=== PATIENT | female | born 1990 | race Caucasian/White ===

== ENCOUNTER → 2017-04-20 21:31 | Outpatient (CLI) | payer BC, SELFPAY ==
[2017-04-20 23:14] LABS: Chlamydia Trachomatis by PCR Negative (Negative); Neisserai gonorrhoeae by PCR Negative (Negative); Probe Check PASS; Sample Adequacy Control PASS; Specimen Processing Control PASS
[2017-04-24 16:13] LABS: HPV Reflexed? NOT INDICATED
== END ==
PROVIDERS: Family Provider Family Medicine; PCP Family Medicine; Visit Provider Nurse Practitioner Women's Health
DX: Z12.4 Encounter for screening for malignant neoplasm of cervix (principal); N89.8 Other specified noninflammatory disorders of vagina
CPT/HCPCS: 87070; 87205; 87491; 87591; 88175; G0145

== ENCOUNTER → 2018-09-06 15:59 | Outpatient (CLI) | payer SELFPAY ==
[2018-09-06 13:57] VITALS: BMI 19.3
[2018-09-06 19:36] LABS: Chlamydia Trachomatis by PCR Negative (Negative); Neisserai gonorrhoeae by PCR Negative (Negative); Probe Check PASS; Sample Adequacy Control PASS; Specimen Processing Control PASS
== END ==
PROVIDERS: Family Provider Family Medicine; PCP Family Medicine; Referring Provider Nurse Practitioner Women's Health; Visit Provider Nurse Practitioner Women's Health
DX: Z11.3 Encounter for screening for infections with a predominantly sexual mode of transmission (principal)
CPT/HCPCS: 87491; 87591

== ENCOUNTER → 2019-10-10 15:47 | Outpatient (CLI) | payer SELFPAY ==
[2019-10-10 11:18] VITALS: BMI 19.3
[2019-10-10 18:03] LABS: Chlamydia Trachomatis by PCR Negative (Negative); Neisserai gonorrhoeae by PCR Negative (Negative); Probe Check PASS; Sample Adequacy Control PASS; Specimen Processing Control PASS
== END ==
PROVIDERS: PCP Family Medicine; Referring Provider Nurse Practitioner Women's Health; Visit Provider Nurse Practitioner Women's Health
DX: Z11.3 Encounter for screening for infections with a predominantly sexual mode of transmission (principal)
CPT/HCPCS: 87491; 87591

== ENCOUNTER → 2020-12-02 15:09 | Outpatient (CLI) | payer SELFPAY ==
[2020-12-05 14:19] LABS: HPV Reflexed? NOT INDICATED
== END ==
PROVIDERS: PCP Family Medicine; Referring Provider Obstetrics & Gynecology; Visit Provider Obstetrics & Gynecology
DX: Z12.4 Encounter for screening for malignant neoplasm of cervix (principal)
CPT/HCPCS: 88175; G0145

== ENCOUNTER → 2023-12-15 | Outpatient (CLI) | payer MEDICAID, SELFPAY ==
[2023-12-22 16:11] LABS: HPV APTIMA, High Risk Negative (Negative)
== END | disposition home or self-care (01) ==
LOC: LABSPEC 12:10
PROVIDERS: PCP Family Medicine; Referring Provider Obstetrics & Gynecology; Visit Provider Obstetrics & Gynecology
DX: Z12.4 Encounter for screening for malignant neoplasm of cervix (principal)
CPT/HCPCS: 87624; 88175; G0145

== ENCOUNTER → 2024-03-29 | Outpatient (CLI) | payer MEDICAID, SELFPAY | END | disposition home or self-care (01) | LOC: LABSPEC 11:05 | PROVIDERS: PCP Family Medicine; Referring Provider Nurse Practitioner Women's Health; Visit Provider Nurse Practitioner Women's Health | DX: N89.8 Other specified noninflammatory disorders of vagina (principal) | CPT/HCPCS: 87070; 87205 ==

== ENCOUNTER → 2024-04-03 | Outpatient (CLI) | payer MEDICAID, SELFPAY ==
[2024-04-03 12:20] LABS: Absolute Neutrophil Count 2.9 X10^3/uL (2.0-7.7); Basophil# 0.05 X10^3/uL; Eosinophil# 0.05 X10^3/uL; Hemoglobin 13.6 g/dL (12.0-15.0); Lymphocyte % 34.2 % (19-41); Mean Corp Hgb Conc 33.2 g/dL (32-36); Mean Corpuscular Hgb 27.8 pg (27.0-32.0); Mean Corpuscular Volume 83.7 fL (81-99); Monocyte# 0.42 X10^3/uL; NRBC Flagged by Analyzer 0 % (0-5); Neutrophil # 2.92 X10^3/uL (2.7-7.7); Neutrophil % 55.4 % (47-70); Platelet Count 213 K/mm3 (150-450); RBC Distribution Width CV 12.9 % (11.6-14.6); RBC Distribution Width SD 39.3 fl (35.1-43.9); White Blood Count 5.3 K/mm3 (4.4-11.0)
[2024-04-03 12:34] LABS: Vitamin D,25 Hydroxy 38.7 ng/mL
[2024-04-03 12:43] LABS: ALB/GLOB Ratio 0.9 RATIO (0.9-2.4); AST(SGOT) 21 U/L (15-37); Alanine Aminotransfer ALT/SGPT 12 U/L (13-56); Albumin, Serum 3.6 g/dL (3.2-5.0); Alkaline Phosphatase 77 U/L (45-117); Anion Gap 5 (5-15); BUN 11 mg/dL (7-18); BUN/Creat Ratio 10.9 RATIO (10-20); Calcium,Total 9.5 mg/dL (8.5-10.1); Chloride 107 mmol/L (98-107); Creatinine, Serum 1.01 mg/dL (0.55-1.02); EST Glomerular Filtration Rate 68 mL/min (>60); Est Glom Filt Rate - Afr Amer 82 mL/min (>60); Glucose 84 mg/dL (74-106); Potassium 3.8 mmol/L (3.5-5.1); Protein, Total 7.6 g/dL (6.4-8.2); Sodium Level 139 mmol/L (136-145)
[2024-04-03 12:43] LABS: Cholesterol 184 mg/dL (200); High Density Lipoprotein 72 mg/dL; Triglycerides 139 mg/dL; Very Low Density Lipoprotein 28 mg/dL (5-40)
== END | disposition home or self-care (01) ==
LOC: BWCLAB 10:48
PROVIDERS: PCP Family Medicine; Referring Provider Nurse Practitioner Women's Health; Visit Provider Nurse Practitioner Women's Health
DX: Z00.00 Encounter for general adult medical examination without abnormal findings (principal); Z13.21 Encounter for screening for nutritional disorder; Z13.220 Encounter for screening for lipoid disorders; Z13.29 Encounter for screening for other suspected endocrine disorder
CPT/HCPCS: 36415; 80053; 80061; 82306; 84443; 85025

== ENCOUNTER → 2025-01-04 | Outpatient (CLI) | payer MEDICAID, SELFPAY ==
[2025-01-11 12:08] LABS: HPV APTIMA, High Risk Negative (Negative)
== END | disposition home or self-care (01) ==
LOC: LABSPEC 16:22
PROVIDERS: PCP Family Medicine; Visit Provider Obstetrics & Gynecology
DX: R87.610 Atypical squamous cells of undetermined significance on cytologic smear of cervix (ASC-US) (principal); Z12.4 Encounter for screening for malignant neoplasm of cervix; N93.0 Postcoital and contact bleeding
CPT/HCPCS: 87070; 87205; 87624; 88175; G0145

== ENCOUNTER → 2025-01-22 | Outpatient (CLI) | payer MEDICAID, SELFPAY ==
--- NOTE | 2025-01-22 14:48 | US_ITS ---
PROCEDURE: PELVIC W/ TRANSVAGINAL 01/22/2025 REASON FOR EXAM: POSTCOITAL BLEEDING TECHNIQUE: Procedure Code: [id number] Modality: US Procedure: PELVIC W/ TRANSVAGINAL COMPARISON: None available. FINDINGS: Uterus: The uterus measures 8.8 x 5.8 x 3.6 cm. Homogenous appearance without evidence of discrete cyst, echogenic calculi, or mass. The endometrial stripe measures 7 mm. Multiple simple nabothian cysts visualized in the cervix. Ill defined lesion measuring 6 x 6 x 5 mm. Right ovary: The right ovary is normal in size measuring 3 x 3 x 2.3 cm. No suspicious masses. Blood flow to the adnexa is normal with arterial and venous waveforms documented. Left ovary: The left ovary is normal in size measuring 3.3 x 1.9 x 0.9 cm. No suspicious masses. Multiple follicles of 10 per scan field. Blood flow to the adnexa is normal with arterial and venous waveforms documented. BLADDER: The bladder wall measures less than less than 3 mm. The ureteral jets were notseen. Prevoid bladder volume is 347 ml. Trace free fluid in the cul de sac. US/Pelvic w/ Transvaginal IMPRESSION: 1. No evidence of acute ovarian torsion. 2. Questionable 6 mm cervical lesion. This can be further evaluated with MRI or visualization with sampling. 3. Multiple left ovarian follicles which can be seen with polycystic ovary syn drome in the appropriate clinical context. 4. Trace free fluid in the cul de sac, likley physiologic. Reading Location: [place] [id number]
--- OUTSIDE RECORDS SUMMARY | 2025-01-22 17:45 | XMS RPT_ITS | CCD ---
Author Organization [facility] Care Team Providers Care Millinery Teacher Name Role Phone Malys, Elvia Referring Unavailable MarcanthonyLoan Attending Unavailable Malys, Elvia Primary Care Unavailable Malys, Elvia Primary Care Unavailable Malys, Elvia Referring Unavailable Marshall SIDEHAND, Gloria Attending Unavailable Malys, Elvia Primary Care Unavailable Mary SIDEHAND, Gloria Attending Unavailable Mary SIDEHAND, Gloria Referring Unavailable Mary SIDEHAND, Gloria Attending Unavailable Mary SIDEHAND, Gloria Referring Unavailable Malys, Elvia Primary Care Unavailable Marcanthony, Loan Attending Unavailable Malys, Elvia Primary Care Unavailable Care Physician, No Primary Primary Care Unava ilable Marcanthony, Loan Attending Unavailable Marcanthony, Loan Referring Unavailable Problems Active Problems Problem Classification Problem Date Documented Da te Episodic/Chronic Cancer of cervix (1 source) Atypical squamous cells of undetermined significance on cytologic smear of cervix (ASC-US); Translations: [Atypical squamous cells of undetermined significance on cytologic smear of cervix (ASC-US)] Onset: 01-15-2025 Episodic Other female genital disorders (2 sources) Postcoital and contact bleeding; Translations: [Postcoital and contact bleeding] Onset: 01-04-2025 Chronic Other screening for suspected conditions (not mental disorders or infectious disease) (5 sources) Encounter for screening for malignant neoplasm of cervix; Translations: [Encounter for screening for nutritional disorder] Onset: 03-29-2024 Episodic Past or Other Problems Problem Classification Problem Date Documented Date Episodic/Chronic Other female genital disorders (1 source) Other specified noninflammatory disorders of vagina; Translations: [Other specified noninflammatory disorders of vagina] Onset: 04-18-2024 Episodic Results Test Name Value Interpretation Reference Range Facility PAP IG HPV APTIMA 16/18,45on 01-11-2025 ADEQ Comment Normal . [facility] Comment on above: Order Comment: Speci men Comment: [id number] Specimen Comment: No. of containers..01 ThinPrep Vial Result Comment: Sati sfactory for evaluation. Endocervical and/or squamous metaplastic cells (endocervical component) are present. Performed By: #### M , L7400.0280, M100.3200 #### [facility] [address] [place], [address] COMM . Normal . [facility] Comment on above: Order Comment: Speci men Comment: [id number] Specimen Comment: No. of containers..01 ThinPrep Vial Performed By: #### M , L7400.0280, M100.3200 #### [facility] [address] [place], [address] COMMENT Comment Normal . [facility] Comment on above: Order Comment: Speci men Comment: [id number] Specimen Comment: No. of containers..01 ThinPrep Vial Result Comment: This liquid based ThinPrep(R) pap test was interpreted using the [employer](R) Genius(TM) Cervical Algorithm whole slide imaging system. Performed By: #### M , L7400.0280, M100.3200 #### [facility] [address] [place], [address] DIAG Comment Abnormal . [facility] Comment on above: Order Comment: Speci men Comment: [id number] Specimen Comment: No. of containers..01 ThinPrep Vial Result Comment: EPIT HELIAL CELL ABNORMALITY. ATYPICAL SQUAMOUS CELLS OF UNDETERMINED SIGNIFICANCE (ASC-US). Performed By: #### M , L7400.0280, M100.3200 #### [facility] [address] [place], [address] HPV APTIMA, HR Negative Normal Negative [facility] Comment on above: Order Comment: Speci men Comment: [id number] Specimen Comment: No. of containers..01 ThinPrep Vial Result Comment: This nucleic acid amplification test detects fourteen high- risk HPV types (16,18,31,33,35,39,45,51,52,56,58,59,66,68) without differentiation. Performed By: #### M 100, L7400.0280, M100.3200 #### [facility] [address] [place], [place], [address] HPV Angie Rfx Comment Normal . [facility] Comment on above: Order Comment: Speci men Comment: [id number] Specimen Comment: No. of containers..01 ThinPrep Vial Result Comment: Crit eria not met, HPV Genotype not performed. Performed at: [facility] [address] [address], [place], [place] [id number] Commissary Steward: Amalia Paul MD, Phone: [phone] Performed at: [address] [id number] Commissary Steward: Pooja Rayo MD, Phone: [phone] Performed at: =[address] [id number] Commissary Steward: Pooja Rayo MD, Phone: [phone] Performed By: #### M , L7400.0280, M100.3200 #### [facility] [address] [place], [place], [address] PAPSMR Comment Normal . [facility] Comment on above: Order Comment: Speci men Comment: [id number] Specimen Comment: No. of containers..01 ThinPrep Vial Result Comment: The Pap smear is a screening test designed to aid in the detection of premalignant and malignant conditions of the uterine cervix. It is not a diagnostic procedure and should not be used as the sole means of detecting cervical cancer. Both false-positive and false-negative reports do occur. Performed By: #### M , L7400.0280, M100.3200 #### [facility] [address] [place], [address] Path.prov.IDC-9 Comment Normal . [facility] Comment on above: Order Comment: Speci men Comment: [id number] Specimen Comment: No. of containers..01 ThinPrep Vial Result Comment: [id number] Performed By: #### M 100.1999, L7400.0280, M100.3200 #### [facility] [address] [place], [address] PERFORM Comment Normal . [facility] Comment on above: Order Comment: Speci men Comment: [id number] Specimen Comment: No. of containers..01 ThinPrep Vial Result Comment: John Styles Ceo & Board Director (ASCP) Performed By: #### M 100, L7400.0280, M100.3200 #### [facility] [address] [place], [address] SIGN Comment Normal . [facility] Comment on above: Order Comment: Speci men Comment: [id number] Specimen Comment: No. of containers..01 ThinPrep Vial Result Comment: Nata Paul MD, Pathologist Performed By: #### M 100.1999, L7400.0280, M100.3200 #### [facility] [address] [place], [address] Genital Culture Comprehensiv sona 01-05-2025 VAC Reason for Exam: postcoital bleeding Normal vaginal leah isolated. No yeast, Gardnerella, Neisseria or beta-hemolytic Streptococcus isolated. Normal [facility] Comment on above: Performed By: #### M 100.1999, L7400.0280, M100.3200 #### [facility] [address] [place], [address] Gram Stainon 01-04-2025 GS Reason for Exam: postcoital bleeding Gram Stain 3+ Gram positive rods 1+ Gram variable jenny No Gram negative diplococci Score = 2 Interpretation: 0-3 Normal, 4-6 Intermediate, 7-10 Positive BV Normal [facility] Comment on above: Performed By: #### M 100.2000, L7400.0280, M100.3200 #### [facility] [address] [place], [address] Advertising Columnist Office Visit Reporton 01-04-2025 Advertising Columnist Office Visit Report [facility] [address], [address] [place] [address] OFFICE VISIT Date of Service: 01/04/25 MR#: [id number] Acct: [id number] Name: EDSON ALEMAN Rep #: [id number] : 1990 Provider: Dr. 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 Loan Sierra MD) Bilateral thumb pain Encounter to establish care Preventative health care Hx of headache Carpal tunnel syndrome Abdominal pain Acute pharyngitis, unspecified URI (upper respiratory infection) Family History Father Cancer prostate Uncle Cancer prostate Grandfather Heart disease Diabetes Grandmother CVA (cerebral vascular accident) Brother Hx of blood clots Brother Blood clot in leg Social History current occupational status: employed current occupation: [employer] Smoking Status: Never smoker alcohol intake: current details: social substance use type: does not use caffeine: Yes what type of physical activity do you participate in: walking seatbelt use: always do you feel safe at home: Yes 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 HPI: The patient is a 34-year-old female presenting for an annual visit and evaluation of postcoital bleeding. Postcoital Bleeding - Reports experiencing postcoital bleeding, which she initially attributed to her menstrual cycle. - Describes the bleeding as "a lot of blood" on one occasion and "hardly noticeable" on others. - Denies any associated pain with the bleeding, though she occasionally feels "some pressure." - No new sexual partners and no concerns for STDs. - Recently discontinued control a few months ago and has been tracking her menstrual cycle, which is usually 33-34 days long. - The episode of significant bleeding occurred around day 24 of her cycle, which she found unusual. Menstrual History - Reports regular menstrual cycles lasting about 5 days. - Denies heavy or painful periods. Contraception Counseling Management - Currently practicing natural family planning to avoid . - Does not wish to conceive at this time and does not want to use control. Gastrointestinal Symptoms - Experiences occasional episodes of severe gastrointestinal upset, including diarrhea and vomiting, usually occurring at night and lasting several hours. - These episodes are sporadic and not associated with fever or body aches, except for one instance. - Reports a recent episode last night, which affected her sleep. - Suspects these episodes might be related to diet or blood sugar issues. - Recent blood work was reportedly normal. - Currently experiencing constipation, which is unusual for her. - Admits to needing improvement in water intake and is trying to increase fiber intake. Urinary Symptoms - Denies any issues with urinary leakage, urgency, or frequency. Breast Health - Denies any breast complaints. Mood - Denies any symptoms of anxiety or depression. Subjective Sections: PMHx - Otherwise healthy Social Hx - Sexual practices: No new sexual partners, denies concerns for STDs ROS: Constitutional: (+) sleep disturbance Gastrointestinal: (+) abdominal discomfort, (+) vomiting, (+) diarrhea, (+) constipation Genitourinary: (+) postcoital bleeding, (+) pelvic pressure with intercourse, (-) urinary urgency, (-) urinary frequency, (-) urinary incontinence, (-) heavy menstrual bleeding, (-) dysmenorrhea, (-) irregular menses, (-) dyspareunia Breast: (-) breast pain Psychiatric: (-) anxiety, (-) depressed mood PhysicalExam: GENERAL: Pleasant; in no apparent distress BREAST: soft, non-tender, symmetric, no dominant mass, normal nipple-areolar complex, no lymphadenopathy, no nipple discharge PULMONARY: no (more content not included)... Normal [facility] CBC W/Diff, Automatedon 03-09 Absolute Lymph 1.80 X10 3/uL Normal 0.83-4.51 [facility] Comment on above: Performed By: #### L 500.4050, L100.0100 #### [facility] [address] [place], [address] Absolute Neut 2.9 X10 3/uL Normal 2.0-7.7 [facility] Comment on above: Performed By: #### L 500.4050, L100.0100 #### [facility] [address] [facility] [place], [address] Basophils/100 WBC (Bld) 1.0 % Normal 0-1 [facility] Comment on above: Performed By: #### L 500.4050, L100.0100 #### [facility] [address] [place], [address] Eosinophils/100 WBC (Bld) 1.0 % Normal 0-5 [facility] Comment on above: Performed By: #### L 500.4050, L100.0100 #### [facility] [address] [facility] [place], [address] Erythrocyte distribution width (RBC) [Ratio] 12.9 % Normal 11.6-14.6 [facility] Comment on above: Performed By: #### L 500.4050, L100.0100 #### [facility] [address] [place], [address] Hematocrit (Bld) [Volume fraction] 41.0 % Normal 37-47 [facility] Comment on above: Performed By: #### L 500.4050, L100.0100 #### [facility] [address] [place], [address] Hemoglobin (Bld) [Mass/Vol] 13.6 g/dL Normal 12.0-15.0 [facility] Comment on above: Performed By: #### L 500.4050, L100.0100 #### [facility] [address] [place], [address] IG% 0.400 Normal 0.0-0.9 [facility] Comment on above: Result Comment: IG% - Immature Granulocytes (promyelocytes, myelocytes and metamyelocytes) > 1% indicates that a LEFT SHIFT is Present. Performed By: #### L 500.4050, L100.0100 #### [facility] [address] [place], [address] Lymphocytes/100 WBC (Bld) 34.2 % Normal 19-41 [facility] Comment on above: Performed By: #### L 500.4050, L100.0100 #### [facility] [address] [place], [address] MCH (RBC) [Entitic mass] 27.8 pg Normal 27.0-32.0 [facility] Comment on above: Performed By: #### L 500.4050, L100.0100 #### [facility] [address] [place], [address] MCHC (RBC) [Mass/Vol] 33.2 g/dL Normal 32-36 [facility] Comment on above: Performed By: #### L 500.4050, L100.0100 #### [facility] [address] [place], [address] MCV (RBC) [Entitic vol] 83.7 fL Normal 81-99 [facility] Comment on above: Performed By: #### L 500.4050, L100.0100 #### [facility] [address] [place], [address] Monocytes/100 WBC (Bld) 8.0 % Normal 0-10 [facility] Comment on above: Performed By: #### L 500.4050, L100.0100 #### [facility] [address] [place], [address] Neutrophils/100 WBC (Bld) 55.4 % Normal 47-70 [facility] Comment on above: Performed By: #### L 500.4050, L100.0100 #### [facility] [address] [place], [address] Nucleated RBC (Bld) [#/Vol] 0 10*3/uL Normal 0-5 [facility] Comment on above: Performed By: #### L 500.4050, L100.0100 #### [facility] [address] [place], [address] Platelet mean volume (Bld) [Entitic vol] 11.0 fL Normal 6.2-12.0 [facility] Comment on above: Performed By: #### L 500.4050, L100.0100 #### [facility] [address] [place], [address] Platelets (Bld) [#/Vol] 213 10*3/uL Normal 150-450 [facility] Comment on above: Performed By: #### L 500.4050, L100.0100 #### [facility] [address] [place], [address] RBC (Bld) [#/Vol] 4.90 10*6/uL Normal 4.2-5.4 [facility] Comment on above: Performed By: #### L 500.4050, L100.0100 #### [facility] [address] [place], [address] RDW SD 39.3 fl Normal 35.1-43.9 [facility] Comment on above: Performed By: #### L 500.4050, L100.0100 #### [facility] [address] [place], [address] WBC (Bld) [#/Vol] 5.3 10*3/uL Normal 4.4-11.0 [facility] Comment on above: Performed By: #### L 500.4050, L100.0100 #### [facility] [address] [place], [address] Comprehensive Metabolic Prof [facility] 04-03-2024 Albumin [Mass/Vol] 3.6 g/dL Normal 3.2-5.0 [facility] Comment on above: Performed By: #### L 500.4050, L100.0100 #### [facility] [address] [place], [address] Albumin/Globulin [Mass ratio] 0.9 {ratio} Normal 0.9-2.4 [facility] Comment on above: Performed By: #### L 500.4050, L100.0100 #### [facility] [address] [place], [address] ALK P 77 U/L Normal 45-117 [facility] Comment on above: Performed By: #### L 500.4050, L100.0100 #### [facility] [address] [place], [address] ALT [Catalytic activity/Vol] 12 U/L Low 13-56 [facility] Comment on above: Performed By: #### L 500.4050, L100.0100 #### [facility] [address] [place], [address] AST [Catalytic activity/Vol] 21 U/L Normal 15-37 [facility] Comment on above: Performed By: #### L 500.4050, L100.0100 #### [facility] [address] [place], [address] Bilirubin [Mass/Vol] 0.50 mg/dL Normal 0.20-1.00 [facility] Comment on above: Result Comment: For patients on eltrombopag therapy, use of Dimension [place] Buck TBIL is not recommended. Performed By: #### L 500.4050, L100.0100 #### [facility] [address] [place], [address] BUN/CRE 10.9 RATIO Normal 10-20 [facility] Comment on above: Performed By: #### L 500.4050, L100.0100 #### [facility] [address] [place], [address] CA,Total 9.5 mg/dL Normal 8.5-10.1 [facility] Comment on above: Performed By: #### L 500.4050, L100.0100 #### [facility] [address] [place], [address] Chloride [Moles/Vol] 107 mmol/L Normal 98-107 [facility] Comment on above: Performed By: #### L 500.4050, L100.0100 #### [facility] [address] [place], [address] CO2 [Moles/Vol] 26.0 mmol/L Normal 21.0-32.0 [facility] Comment on above: Performed By: #### L 500.4050, L100.0100 #### [facility] [address] [place], [address] Creatinine [Mass/Vol] 1.01 mg/dL Normal 0.55-1.02 [facility] Comment on above: Result Comment: The validity of the calculated GFR GFRAA in patients over 70 years has not been determined. Clinical correlation is essential. Performed By: #### L 500.4050, L100.0100 #### [facility] [address] [place], [address] EST GFR - AA 82 mL/min Normal >60 [facility] Comment on above: Result Comment: Afri can [place] GFR Calc Performed By: #### L 500.4050, L100.0100 #### [facility] [address] [place], [address] GAP 5 Normal 5-15 [facility] Comment on above: Performed By: #### L 500.4050, L100.0100 #### [facility] [address] [place], [address] GFR/1.73 sq M.predicted among non-blacks MDRD (S/P/Bld) [Vol rate/Area] 68 mL/min/{1.73_m2} Normal >60 [facility] Comment on above: Result Comment: Non- GFR Calc Performed By: #### L 500.4050, L100.0100 #### [facility] [address] [place], [address] Globulin (S) [Mass/Vol] 4.0 g/dL Normal 2.2-4.2 [facility] Comment on above: Performed By: #### L 500.4050, L100.0100 #### [facility] [address] [place], [address] Glucose [Mass/Vol] 84 mg/dL Normal 74-106 [facility] Comment on above: Performed By: #### L 500.4050, L100.0100 #### [facility] [address] [place], [address] Potassium [Moles/Vol] 3.8 mmol/L Normal 3.5-5.1 [facility] Comment on above: Performed By: #### L 500.4050, L100.0100 #### [facility] [address] [place], [address] Sodium [Moles/Vol] 139 mmol/L Normal 136-145 [facility] Comment on above: Performed By: #### L 500.4050, L100.0100 #### [facility] [address] [place], [address] T PROT 7.6 g/dL Normal 6.4-8.2 [facility] Comment on above: Performed By: #### L 500.4050, L100.0100 #### [facility] [address] [place], [address] Urea nitrogen [Mass/Vol] 11 mg/dL Normal 7-18 [facility] Comment on above: Performed By: #### L 500.4050, L100.0100 #### [facility] [address] [place], [address] Lipid Profileon 04-03-2024 Cholesterol [Mass/Vol] 184 mg/dL Normal 200 [facility] Comment on above: Result Comment: <200 mg/dL Desirable 200-240 mg/dL Borderline >240 mg/dL High Risk Performed By: #### L 500.4050, L100.0100 #### [facility] [address] [place], [address] Cholesterol in HDL [Mass/Vol] 72 mg/dL Normal [facility] Comment on above: Result Comment: The drugs N-Acetylcysteine and Metamizole may falsely depress this assay. Reference Range HDL <40 mg/dL Low HDL Cholesterol HDL >or= 60 mg/dL High HDL Cholesterol Performed By: #### L 500.4050, L100.0100 #### [facility] [address] [place], [address] Cholesterol in LDL [Mass/Vol] 84 mg/dL Normal 0-130 [facility] Comment on above: Performed By: #### L 500.4050, L100.0100 #### [facility] [address] [place], [address] Cholesterol in VLDL [Mass/Vol] 28 mg/dL Normal 5-40 [facility] Comment on above: Performed By: #### L 500.4050, L100.0100 #### [facility] [address] [place], [address] Triglyceride [Mass/Vol] 139 mg/dL Normal [facility] Comment on above: Result Comment: The drugs N-Acetylcysteine and Metamizole may falsely depress this assay. Serum Triglycerides Reference Interval Normal <150 mg/dL Borderline high 150 - 199 mg/dL High 200 - 499 mg/dL Very High > or = 500 mg/dL Performed By: #### L 500.4050, L100.0100 #### [facility] [address] [place], [address] Thyroid Stim Hormone (TSH)on 04-03-2024 TSH 1.230 uIU/mL Normal 0.358-3.740 [facility] Comment on above: Performed By: #### L 500.4050, L100.0100 #### [facility] [address] [place], [address] Vitamin D,25 Hydroxyon 04-03 Vitamin D 25-OH 38.7 ng/mL Normal [facility] Comment on above: Result Comment: Autumn min D 25(OH) Status Range Deficiency <20 ng/mL (50nmol/L) Insufficiency 20 - 30 ng/mL (50 - 75 nmol/L) Sufficiency 30 - 100 ng/mL (75 - 250 nmol/L) Toxicity >100 ng/mL (>250 nmol/L) Performed By: #### L 500.4100, L501.9520, L506.1000 #### [facility] [address], [address] Genital Culture Comprehensiv sona 04-01-2024 VAC Reason for Exam: vaginal irritation Normal vaginal leah isolated. No yeast, Gardnerella, Neisseria or beta-hemolytic Streptococcus isolated. Normal [facility] Comment on above: Performed By: #### M 100.1999, M100.3200 #### [facility] [address] [place], [address] Gram Stainon 03-29-2024 GS Reason for Exam: vaginal irritation Gram Stain 4+ Gram positive rods 1+ White Blood Cells 1+ Epithelial cells No Gram negative diplococci Score = 0 Interpretation: 0-3 Normal, 4-6 Intermediate, 7-10 Positive BV Normal [facility] Comment on above: Performed By: #### M 100.1999, M100.3200 #### [facility] [address] [place], [address] Advertising Columnist Office Visit Reporton 03-29-2024 Advertising Columnist Office Visit Report [facility] [address], [address] [place] [address] OFFICE VISIT Date of Service: 03/29/24 MR#: [id number] Acct: [id number] Name: EDSON ALEMAN Rep #: [id number] : 1990 Provider: LUDIN early Age/Sex: 33/F Location: [facility] [place] Status: Signed Intake Vital Signs 12/15/23 11:20 03/29/24 10:21 03/29/24 10:25 Height 5 ft 4 in 5 ft 4 in 5 ft 4 in Weight: 112 lb 118 lb 8 oz BMI 19.2 20.3 BP 102/71 118/78 Intake Visit Reasons: vaginal irritation Chief Complaint: Vaginal irritation Whipped Topping Mixer Required: No Is patient in pain?: No Allergies No Known Allergies Allergy (Verified 03/29/24 10:20) Medications ???Medication ???Instructions ???Recorded ???Confirmed ???Type fluconazole 150 mg tablet 150 mg PO .COMPLEX #2 tabs 03/29/24 03/29/24 Rx Is last menstrual period known: Yes Last Menstrual Period: 03/20/24 Post menopausal: No Patient : No : No PFSH Medical History Bilateral thumb pain Encounter to establish care Preventative health care Hx of headache Carpal tunnel syndrome Abdominal pain Acute pharyngitis, unspecified URI (upper respiratory infection) Family History Father Cancer prostate Uncle Cancer prostate Grandfather Heart disease Diabetes Grandmother CVA (cerebral vascular accident) Brother Hx of blood clots Brother Blood clot in leg Social History current occupational status: employed current occupation: [employer] Smoking Status: Never smoker alcohol intake: current details: social substance use type: does not use caffeine: Yes what type of physical activity do you participate in: walking seatbelt use: always do you feel safe at home: Yes 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 Same snf sexual partner. OCP for contraception. Female Reproductive History Last Menstrual Period: 03/20/24 History 0 Elective abortions Hx Para Spontaneous abortions Hx # Term Pregnancies Ectopic pregnancies Hx # Pregnancies Multiple births # of living children ROS Const Constitutional: Reports system reviewed and no additional complaints, except as documented Eyes Eyes: Reports system reviewed and no additional complaints, except as documented GI GI: Denies abdominal pain or change in bowel habits : Reports as per HPI Exam Const General: cooperative and no acute distress Orientation: oriented x3 General: bladder normal to palpation External Female Exam: normal appearance of the urethra and erythema Urethra: normal appearance of the urethra Speculum Exam - Vagina: normal vaginal discharge, erythematous, no lesions and nontender Speculum Exam - Cervix: normal appearance of the cervix Bimanual Exam- Vagina Uterus: normal bimanual exam, uterine size normal, bladder normal to palpation, uterine shape normal, uterine mobility normal and non-tender Bimanual Exam- Adnexa, other: normal adnexae, no masses and non-tender Coding Level of Care Code Off vis,est,level 3 Diagnoses Monilial vaginitis B37.31 Assessment and Plan Assessment and Plan (1) Monilial vaginitis: Orders: Orders Vitamin D,25 Hydroxy Today Z13.21 - Encounter for screening for nutritional disorder Lipid Profile Today Z13.220 - Encounter for screening for lipoid disorders Glucose Today Z13.1 - Encounter for screening for diabetes mellitus Thyroid Stim Hormone (TSH) Today Z13.29 - Encounter for screening for other suspected endocrine disorder Medications: New fluconazole 150 mg PO take one po now and repeat in 3 days 2 tabs 0RF Plan Comp vaginal culture and PIEDAD BV-all positive Rx fluconazole RTO prn, annual exam 03/29/24 1038 Date Gloria Hernandez NP [facility] [employer] Signature: Date (if applicable) CC: Normal [facility] Encounters Encounter Date Encounter Type Care Provider Facility Start: 01-22-2025 ambulatory No Primary Car e Physician Facility:[facility] Start: 01-04-2025 End: 01-04-2025 amb[place] Elvia [place]edeño [place] [place]: 01-04-2025 End: 01-04-2025 ambulatory Loan Sierra Facility:[facility] Start: 04-21-2024 Encounter for genera l adult medical examination without abnormal findings Gloria Hernandez NP [facility] Start: 04-03-2024 End: 04-03-2024 ambulatory Gloria Hernandez NP Facility:[facility] Start: 03-29-2024 End: 03-29-2024 ambulatory Elvia Cedeño Facility:[facility] Start: 03-29-2024 End: 03-29-2024 ambulatory Elvia Cedeño Facility:[facility] Payers Date Payer Category Payer Self-pay 2024 Unknown [id number] Unknown [id number] [id number] [id number] Unknown [id number] 2.16.8 [id number] Unknown [id number] 2.16.8 [id number] Unknown [id number] 2.16.8 [id number] Unknown [id number] 2.16.8 [id number] Unknown [id number] 2.16.8 [id number] Summary Purpose Family History No Family History Records Found Advance Directives No Advanced Directives Records Found Additional Source Comments INFORMATION SOURCE (unrecogn ized section and content) DATE CREATED AUTHOR 01/17/2025 [facility] FOR RECORDS PERTAINING TO PATIENTS WHO ARE OR HAVE BEEN ENROLLED IN A CHEMICAL DEPENDENCY/SUBSTANCEABUSE PROGRAM, SOME INFORMATION MAY BE OMITTED. This clinical summary was aggregated from multiple sources. Caution should be exercised in using it in the provision of clinical care. This summary normalizes information from multiple sources, and as a consequence, information in this document may materially change the coding, format and clinical context of patient data. In addition, data may be omitted in some cases. CLINICAL DECISIONS SHOULD BE BASED ON THE PRIMARY CLINICAL RECORDS. [employer] [email or web address] provides no warranty or guarantee of the accuracy or completeness of information in this document.
== END | disposition home or self-care (01) ==
LOC: US 14:45
PROVIDERS: Referring Provider Obstetrics & Gynecology; Visit Provider Obstetrics & Gynecology
DX: N93.0 Postcoital and contact bleeding (principal)
CPT/HCPCS: 76830; 76856